=== PATIENT | female | born 1985 | race Caucasian/White ===

== ENCOUNTER 2017-12-08 13:43 | Emergency (ER) | payer OTHER | END 2017-12-08 15:45 | disposition home or self-care (01) | LOC: M ED 13:43 | DX: O99.343 Other mental disorders complicating pregnancy, third trimester (principal); F32.9 Major depressive disorder, single episode, unspecified; O99.013 Anemia complicating pregnancy, third trimester; D64.9 Anemia, unspecified; Z3A.32 32 weeks gestation of pregnancy; Z91.018 Allergy to other foods; Z79.899 Other long term (current) drug therapy | CPT/HCPCS: 99284 ==

== ENCOUNTER 2018-01-26 22:49 | Outpatient (CLI) | payer OTHER | END 2018-01-26 23:41 | disposition home or self-care (01) | LOC: M LDO 22:49 | DX: O47.1 False labor at or after 37 completed weeks of gestation (principal); Z3A.39 39 weeks gestation of pregnancy | CPT/HCPCS: 59025 ==

== ENCOUNTER 2018-02-05 05:29 | Inpatient (IN) | payer OTHER ==
[2018-02-02] MEDS: LACTATED RINGER'S 1000 ML IV (06:22)
[2018-02-05 06:47] LABS: HEMOGLOBIN 9.5 g/dl (12.0-15.5); MEAN CORPUSCULAR HEMOGLOBIN 23.5 pg (27.0-33.0); MEAN CORPUSCULAR HGB CONC 31.7 g/dl (32.0-36.5); MEAN CORPUSCULAR VOLUME 74.3 fl (80.0-96.0); PLATELET COUNT, AUTOMATED 300 10^3/uL (150-450); RED BLOOD COUNT 4.04 10^6/uL (4.00-5.40); RED CELL DISTRIBUTION WIDTH 16.4 % (11.5-14.5); WHITE BLOOD COUNT 9.2 10^3/uL (4.0-10.0)
[2018-02-05] MEDS: LR 1,000 ML IV ×2 (08:00→12:30)
[2018-02-05] MEDS ORDERED: FENTANYL 2MCG/ML ROPIVACAINE 0.2% IN 0.9% NACL 200ML IVBAG As Ordered (09:15)
[2018-02-05] MEDS: OXYTOCIN DRIP 30 UNITS in APPROPRIATE DILUENT 1 EA IV ×2 (10:48→15:14)
[2018-02-05] MEDS ORDERED: diphenhydrAMINE INJ 50MG/ML VIAL (J1200) IV (13:00)
[2018-02-05] MEDS ORDERED: EPIDURAL COMMENT XX (13:00)
[2018-02-05] MEDS ORDERED: EPIDURAL/PCA KEYS XX (13:00)
[2018-02-05] MEDS ORDERED: LACTATED RINGER'S 1000 ML IV (13:00)
[2018-02-05] MEDS ORDERED: ONDANSETRON 4MG/2ML VIAL (J2405) IV (13:00)
[2018-02-05] MEDS ORDERED: REFRIGERATOR IV KEYS XX (13:00)
[2018-02-05] MEDS ORDERED: ePHEDrine SULFATE 25 MG/5 ML(5MG/ML) SYRINGE IV (13:00)
[2018-02-05] MEDS ORDERED: FENTANYL/ROPIVACAINE/NACL BAG 200 ML EPIDURAL (13:00)
[2018-02-05] MEDS ORDERED: NALOXONE INJ 0.4 MG/1 ML VIAL (J2310) IV (13:00)
[2018-02-05] MEDS ORDERED: DIBUCAINE 1% OINTMENT 30GM TOP (15:15)
[2018-02-05] MEDS ORDERED: METOCLOPRAMIDE INJ 10MG/2ML VIAL (J2765) IV (15:15)
[2018-02-05] MEDS: MEASLES,MUMPS,RUBELLA VACCINE INJ (MMR-II) (90707) SC (17:31)
[2018-02-05] MEDS: RHOGAM 300 MCG (1500 IU) INJ (J2790) IM (17:31)
[2018-02-05] MEDS: IBUPROFEN 800 MG TAB PO (19:54)
[2018-02-05] MEDS: DOCUSATE SODIUM 100 MG CAP PO (19:55)
[2018-02-06] MEDS: ACETAMINOPHEN TAB 650MG DOSE (2X325MG) PO ×4 (01:26→16:51)
[2018-02-06] MEDS: IBUPROFEN 800 MG TAB PO ×3 (03:44→20:37)
[2018-02-06] MEDS: DOCUSATE SODIUM 100 MG CAP PO ×2 (08:23→20:37)
[2018-02-06] MEDS: INFLUENZA QUADRIVALENT PF VACCINE 0.5ML SYRINGE (90686) IM (08:23)
[2018-02-06] MEDS: PRENATAL VITAMINS CHEWABLE TABLET PO (08:23)
[2018-02-07] MEDS: ACETAMINOPHEN TAB 650MG DOSE (2X325MG) PO ×2 (00:02→09:24)
[2018-02-07] MEDS: IBUPROFEN 800 MG TAB PO (04:40)
[2018-02-07] MEDS: DOCUSATE SODIUM 100 MG CAP PO (09:00)
[2018-02-07] MEDS: PRENATAL VITAMINS CHEWABLE TABLET PO (09:00)
== END 2018-02-07 13:25 | disposition home or self-care (01) | DRG 775 ==
LOC: M LDO 05:29 → M LDI 06:16 → M OBS 17:31
PROVIDERS: Obstetrics & Gynecology
PROC: 10E0XZZ Delivery of Products of Conception, External Approach (ICD-10-PCS; principal; 2018-02-05)
PROC: 0HQ9XZZ Repair Perineum Skin, External Approach (ICD-10-PCS; 2018-02-05)
PROC: 10907ZC Drainage of Amniotic Fluid, Therapeutic from Products of Conception, Via Natural or Artificial Opening (ICD-10-PCS; 2018-02-05)
DX: O48.0 Post-term pregnancy (principal); Z37.0 Single live birth; Z3A.40 40 weeks gestation of pregnancy; O70.0 First degree perineal laceration during delivery; O09.31 Supervision of pregnancy with insufficient antenatal care, first trimester; O09.32 Supervision of pregnancy with insufficient antenatal care, second trimester